=== PATIENT | female | born 1970 | race Caucasian/White ===

== ENCOUNTER 2016-06-13 15:45 | Emergency (ER) | payer OTHER ==
[~2016-06-13] VITALS: Ht 152.4 cm; Wt 67.1 kg
[~2016-06-13 15:45] MED LIST: CALC500T32; POTASSIUM SUPP; PREN1TAB49
[2016-06-13 16:02] VITALS: Ht 152.4 cm; Wt 67.1 kg
[2016-06-13] MEDS ORDERED: IBUP-1542 PO (17:06)
--- NOTE | 2016-06-13 17:09 | ERD ---
ER Documentation Chief Complaint Date/Time DATE: 06/13/16 TIME: 17:07 Chief Complaint back pain rad legs HPI Patient is a 45-year-old female who presents with lower back pain. The patient has had this back pain over the past 1 week but was getting worse. She feels it down the back of her left leg as well and feels like the front of her left leg is numb. She said that it is worse with movement. She is not . She has had no fevers and no incontinence. She saw in [facility] over the past few days who did an x-ray and said that she had a slipped disc and gave her gabapentin which she has been taking. Her primary doctor in the [place] is Dr. Vidal. Upon review of old medical records this is the patient's fourth visit to the ER since 2010. ROS All systems reviewed and are negative except as per history of present illness. Medications Home Meds Active Scripts Ibuprofen* (Motrin*) 600 Mg Tab, 600 MG PO Q6H Y for PAIN AND OR ELEVATED TEMP, #30 TAB Prov:ANICETO ELIZONDO MD 06/13/16 Reported Medications [Potassium Supp] No Conflict Check 08/06/10 Calcium (Calcio Lazarus) 500 Mg Tablet 08/06/10 Vits W-Ca,Fe,Fa(<1MG) () 1 Tab Tablet 08/06/10 Allergies Allergies: Coded Allergies: No Known Allergies (Verified Allergy, Mild, 08/06/10) PMhx/Soc Medical and Surgical Hx: pt denies Medical Hx History of Surgery: No Anesthesia Reaction: No Hx Neurological Disorder: No Hx Respiratory Disorders: No Hx Cardiac Disorders: No Hx Psychiatric Problems: No Hx Miscellaneous Medical Probl: No Hx Alcohol Use: No Hx Substance Use: No Hx Tobacco Use: No Smoking Status: Never smoker FmHx Family History: coronary disease Physical Exam Vitals Vital Signs Date Time Temp Pulse Resp B/P Pulse Ox O2 Delivery O2 Flow Rate FiO2 06/13/16 16:02 98.1 67 18 127/67 99 Physical Exam Const: No acute distress Head: Atraumatic Eyes: Normal Conjunctiva ENT: Normal External Ears, Nose and Mouth. Neck: Full range of motion..~ No meningismus. Resp: Clear to auscultation bilaterally Cardio: Regular rate and rhythm, no murmurs Abd: Soft, non tender, non distended. Normal bowel sounds Skin: No petechiae or rashes Back: Bilateral lower back pain without midline tenderness to palpation Ext: No cyanosis, or edema Neur: Awake and alert, ambulatory Psych: Normal Mood and Affect Procedures/MDM Patient is a 45-year-old female who presents with bilateral lower back pain with radiation down the left leg. I believe her symptoms are consistent with sciatica. I will treat her with a prescription for ibuprofen. I doubt epidural abscess, epidural hematoma, or cauda equina syndrome. I do not believe patient needs further workup at this time. I believe outpatient management is appropriate. Departure Diagnosis: Primary Impression: Sciatica Laterality: left Qualified Code: M54.32 - Sciatica of left side Additional Impression: Back pain Back pain location: low back pain Chronicity: acute Back pain laterality: left Sciatica presence: with sciatica Sciatica laterality: sciatica of left side Qualified Code: M54.42 - Acute left-sided low back pain with left-sided sciatica Condition: Fair Patient Instructions: Back Pain W/ Sciatica Additional Instructions: Llame al doctor MAANA y jamie jay WILLIAMS PARA DENTRO DE 1-2 VASQUEZ.Dgale a la secretaria que nosotros le instruimos hacer esta williams.Avise o llame si ferrara condicin se empeora antes de la williams. Regresa aqui si peor o no mejor. ANICETO ELIZONDO MD Jun 13, 2016 17:09
== END 2016-06-13 17:49 | disposition home or self-care (01) ==
LOC: FTE 15:45
DX: M54.42 Lumbago with sciatica, left side (principal)
CPT/HCPCS: 99283

== ENCOUNTER 2017-02-14 20:56 | Emergency (ER) | payer OTHER ==
[~2017-02-14] VITALS: Ht 154.9 cm; Wt 60.7 kg
[~2017-02-14 20:56] MED LIST changes: +IBUP-1542 PO
[2017-02-14 20:57] VITALS: Ht 154.9 cm; Wt 60.7 kg
[2017-02-14] MEDS ORDERED: NAPR-260 PO (21:17)
[2017-02-14] MEDS ORDERED: MECL12.574 PO (21:17)
[2017-02-14] MEDS ORDERED: CYCL-319 PO (21:17)
--- NOTE | 2017-02-14 21:25 | ERD ---
ER Documentation Chief Complaint Chief Complaint neck pain x 2 days HPI Patient is a 46-year-old female with past medical history of neck pain presenting to the emergency department with complaints of neck pain intermittently for the past 2 days. The patient has had similar symptoms in the past which resolved without intervention. The patient denies chest pain, shortness of breath, fevers, chills, neck stiffness, trauma, or other symptoms at this time. Symptoms are worse with movement. Associated symptoms include tingling in her left hand which is worse when she moves her head to the left side. No other symptoms reported at this time. Additionally, the patient mentions some mild vertigo symptoms which have intermittently been occurring over the past couple of weeks, but they resolve spontaneously after a couple of seconds. She does not have any vertigo symptoms at this moment. ROS All systems reviewed and are negative except as per history of present illness. Medications Home Meds Active Scripts Naproxen* (Naprosyn*) 500 Mg Tablet, 500 MG PO BID Y for PAIN AND/OR INFLAMMATION, #20 TAB Prov:ULYSSES FISHMAN PA-C 02/14/17 Cyclobenzaprine Hcl* (Cyclobenzaprine Hcl*) 10 Mg Tablet, 10 MG PO TID, #15 TAB Prov:ULYSSES FISHMAN PA-C 02/14/17 Meclizine Hcl* (Antivert*) 12.5 Mg Tab, 12.5 MG PO Q6H Y for DIZZINESS, #20 TAB Prov:ULYSSES FISHMAN PA-C 02/14/17 Ibuprofen* (Motrin*) 600 Mg Tab, 600 MG PO Q6H Y for PAIN AND OR ELEVATED TEMP, #30 TAB Prov:ANICETO ELIZONDO MD 06/13/16 Reported Medications [Potassium Supp] No Conflict Check 08/06/10 Calcium (Calcio Lazarus) 500 Mg Tablet 08/06/10 Vits W-Ca,Fe,Fa(<1MG) () 1 Tab Tablet 08/06/10 Allergies Allergies: Coded Allergies: No Known Allergies (Verified Allergy, Mild, 08/06/10) PMhx/Soc History of Surgery: No Anesthesia Reaction: No Hx Neurological Disorder: No Hx Respiratory Disorders: No Hx Cardiac Disorders: No Hx Psychiatric Problems: No Hx Miscellaneous Medical Probl: No Hx Alcohol Use: No Hx Substance Use: No Hx Tobacco Use: No Smoking Status: Never smoker Physical Exam Vitals Vital Signs Date Time Temp Pulse Resp B/P Pulse Ox O2 Delivery O2 Flow Rate FiO2 02/14/17 20:57 98.7 74 20 113/66 100 Physical Exam Const: Nontoxic, well-appearing female in no acute distress. Head: Atraumatic Eyes: Normal Conjunctiva ENT: Normal External Ears, Nose and Mouth. Neck: Full range of motion..~ No meningismus. No tenderness palpation of the paraspinal muscles of the C-spine. Increased muscle tension noted in the trapezius muscles bilaterally. Skin: No petechiae or rashes Back: No midline or flank tenderness Ext: No cyanosis, or edema Neur: Awake and alert Psych: Normal Mood and Affect Procedures/MDM 46-year-old female presented to the emergency department complains of neck pain and vague vertigo symptoms. The patient denies of any vertigo symptoms at this time. Neck pain is likely musculoskeletal. May be related to cervical radiculopathy. Low suspicion for meningitis, sepsis, or other emergent conditions. The patient is stable and appropriate for outpatient management with prescriptions. She agrees with the discharge plan/diagnosis. She is to follow-up with her primary care physician within the next 1-2 days and return immediately for any new or worsening symptoms. Her questions were addressed in full. Departure Diagnosis: Primary Impression: Neck pain Additional Impression: Dizziness Condition: Fair Patient Instructions: Inner Ear Problems: Causes of Dizziness (Vertigo), Neck Pain, No Trauma Additional Instructions: Llame al doctor MAJORGE y jamie jay WILLIAMS PARA DENTRO DE 1-2 VASQUEZ.Dgale a la secretaria que nosotros le instruimos hacer esta williams.Avise o llame si ferrara condicin se empeora antes de la williams. Regresa aqui si peor o no mejor. ULYSSES FISHMAN PA-C Feb 14, 2017 21:25
== END 2017-02-14 21:30 | disposition home or self-care (01) ==
LOC: FTE 20:56
DX: M54.2 Cervicalgia (principal); R42 Dizziness and giddiness
CPT/HCPCS: 99283